=== PATIENT | female | born 1975 | race Caucasian/White ===

== ENCOUNTER 2017-12-13 07:04 | Emergency (ER) | payer MEDICARE ==
[2017-12-13 07:46] VITALS: BP 139/89
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
--- NOTE | 2017-12-13 10:46 | ER Document Report ---
ED General - General Mode of Arrival: Ambulatory Information source: Patient TRAVEL OUTSIDE OF THE [place] IN LAST 30 DAYS: No - HPI Patient complains to provider of: muscle aches Onset: Just prior to arrival Associated symptoms: None Exacerbated by: Denies Relieved by: Denies Similar symptoms previously: Yes Recently seen / treated by doctor: Yes - General Chief Complaint: Psych Problem Stated Complaint: PSYCH EVAL Time Seen by Provider: 12/13/17 08:16 - HPI Notes: Pt. states she had to give herself a "full body massage" because she has muscle aches all over from walking so much. She states hse is living in a hotel with her . "we recently got -don't you see my rings"(patient points to multiple large rings on her left ring finger). She states her left to go get her pain medications and she got bored at the hotel "and I couldn't move " so she called 911. Pt. denies SI/HI at this time. She states she is on abilify and wellbutrin but doesn't take them "all the time". Staes she quit drinking alcohol "months ago" and was just recently discharged from [facility]. She denies taking any illicit drugs with the exception of marijuana. (RADHA PRITCHARD) - Related Data Allergies/Adverse Reactions: carbamazepine [From Tegretol] Allergy (Verified 12/13/17 07:47) divalproex sodium [From Depakote] Allergy (Verified 12/13/17 07:47) olanzapine [From Zyprexa] Allergy (Verified 12/13/17 07:47) Penicillins Allergy (Verified 12/13/17 07:47) Sulfa (Sulfonamide Antibiotics) Allergy (Verified 12/13/17 07:47) Past Medical History - General Information source: Patient - Social History Smoking Status: Current Some Day Smoker Frequency of alcohol use: None Drug Abuse: Marijuana Lives with: Family Family History: None Patient has suicidal ideation: No Patient has homicidal ideation: No - Past Medical History Cardiac Medical History: Reports: None Pulmonary Medical History: Reports: None EENT Medical History: Reports: None Neurological Medical History: Reports: None Endocrine Medical History: Reports: None Renal/ Medical History: Reports: None. Denies: Hx Peritoneal Dialysis Malignancy Medical History: Reports: None GI Medical History: Reports: None Musculoskeltal Medical History: Reports None Psychiatric Medical History: Reports: Hx Personality Disorder Review of Systems - Review of Systems Constitutional: No symptoms reported EENT: No symptoms reported Cardiovascular: No symptoms reported Respiratory: No symptoms reported Gastrointestinal: No symptoms reported Genitourinary: No symptoms reported Female Genitourinary: No symptoms reported Musculoskeletal: Muscle pain Skin: No symptoms reported Hematologic/Lymphatic: No symptoms reported Neurological/Psychological: No symptoms reported Physical Exam - Vital signs Vitals: Temp Pulse Resp BP Pulse Ox 99.0 F 87 18 139/89 H 99 12/13/17 07:45 12/13/17 07:45 12/13/17 07:45 12/13/17 07:45 12/13/17 07:45 - Notes Notes: PHYSICAL EXAMINATION: GENERAL: Sitting in a recliner. No acute distress HEAD: Atraumatic, normocephalic. EYES: Pupils equal round and reactive to light, extraocular movements intact, conjunctiva are normal. ENT: Nares patent, oropharynx clear without exudates. Moist mucous membranes. NECK: Normal range of motion, supple without lymphadenopathy LUNGS: Breath sounds clear to auscultation bilaterally and equal. No wheezes rales or rhonchi. HEART: Regular rate and rhythm without murmurs ABDOMEN: Soft, nontender, nondistended abdomen. No guarding, no rebound. No masses appreciated. Female : deferred Musculoskeletal: Normal range of motion, no pitting or edema. No cyanosis. NEUROLOGICAL: Cranial nerves grossly intact. Normal speech, normal gait. Normal sensory, motor exams. Alert and oriented 3. Good eye contact. PSYCH: Denies SI/HI. SKIN: Warm, Dry, normal turgor, no rashes or lesions noted. (RADHA PRITCHARD) Course - Re-evaluation Re-evalutation: 12/13/17 10:50 Is alert and oriented 3. She was seen by the psychiatry team. I did read their note in full. Patient refusing blood work at this time. She will be discharged home with follow-up as an outpatient. (RADHA PRITCHARD) - Vital Signs Vital signs: Temp Pulse Resp BP Pulse Ox 99.0 F 87 18 139/89 H 99 12/13/17 07:45 12/13/17 07:45 12/13/17 07:45 12/13/17 07:45 12/13/17 07:45 Discharge - Discharge Clinical Impression: Borderline personality disorder Condition: Stable Disposition: HOME, SELF-CARE Additional Instructions: Follow up with your physician tomorrow for further care or return to the ED IMMEDIATELY if symptoms worsen or new concerns occur. If you cannot afford to follow up with your primary care physician a list of low cost clinics have been provided at the end of your discharge papers as well. Referrals: [facility] [Outside] - Follow up as needed
--- NOTE | 2017-12-14 06:45 | EKG REPORT ---
SEVERITY:- ABNORMAL ECG - SINUS RHYTHM NONSPECIFIC T ABNORMALITIES, ANTERIOR AND INFERIOR LEADS : Confirmed by: Noah Ochoa MD 14-Dec-2017 06:44:48
== END 2017-12-13 11:23 | disposition home or self-care (01) ==
LOC: ER 07:04
DX: F60.3 Borderline personality disorder (principal); M79.1 Myalgia; F12.10 Cannabis abuse, uncomplicated; F17.200 Nicotine dependence, unspecified, uncomplicated; Z79.899 Other long term (current) drug therapy; Z91.14 Patient's other noncompliance with medication regimen; Z88.8 Allergy status to other drugs, medicaments and biological substances; Z88.0 Allergy status to penicillin; Z88.2 Allergy status to sulfonamides
CPT/HCPCS: 93005; 93010; 99285